=== PATIENT | female | born 1985 | race American Indian/Alaskan Native ===

== ENCOUNTER 2017-03-28 21:07 | Emergency (ER) | payer SELFPAY ==
[2017-03-28 22:24] VITALS: BP 130/79
== END 2017-03-29 01:05 | disposition left against medical advice (07) ==
LOC: ED 21:07
DX: R50.9 Fever, unspecified (principal); Z53.21 Procedure and treatment not carried out due to patient leaving prior to being seen by health care provider

== ENCOUNTER 2017-04-11 13:02 | Emergency (ER) | payer SELFPAY | END 2017-04-11 14:00 | disposition left against medical advice (07) | LOC: ED 13:02 | DX: Z53.21 Procedure and treatment not carried out due to patient leaving prior to being seen by health care provider (principal) ==

== ENCOUNTER 2020-03-09 12:23 | Emergency (ER) | payer SELFPAY ==
[2020-03-09 12:40] VITALS: BP 131/92
--- NOTE | 2020-03-09 12:40 | Emergency Department Report ---
Chief Complaint: Medical Clearance Stated Complaint: DIABETIC OFF MEDS Time Seen by Provider: 03/09/20 12:38 - HPI History of Present Illness: DM FOR SEVERAL YEARS OFF MEDS WANTED BG CHECKED NO POLYURIA/PHAGIA/DIPSIA VSS - ROS Review of Systems: NO COMPLAINTS - Exam Vital Signs: Vital Signs 03/09/20 12:33 Temperature 98.7 F Pulse Rate 74 Respiratory 18 Rate Blood Pressure 131/92 O2 Sat by Pulse 98 Oximetry Physical Exam: AO S1S2 LUNGS CTA ABD SNT MSE screening note: Focused history and physical exam performed. Due to findings the following was ordered: Patient discussed with doctor:: MIREYA MONTOYA ED Disposition for MSE Clinical Impression: Diabetes Disposition: Z MED SCREENING EXAM-LEFT Is pt being admited?: No Does the pt Need Aspirin: No Condition: Stable Instructions: Diabetes Mellitus Type 2 in Adults (ED), Meal Planning with Diabetes Exchanges (DC) Additional Instructions: DIABETIC DIET LOW CARB DRINK PLENTY OF WATER FOLLOW UP WITH PCP SEE REFERRAL BELOW Referrals: JOSHUA SIDDIQUI MD [Staff Physician] - 3-5 Days Time of Disposition: 12:43
== END 2020-03-09 12:41 | disposition left against medical advice (07) ==
LOC: ED 12:23
DX: E11.9 Type 2 diabetes mellitus without complications (principal); Z53.21 Procedure and treatment not carried out due to patient leaving prior to being seen by health care provider
CPT/HCPCS: 82962

== ENCOUNTER 2020-12-04 13:44 | Emergency (ER) | payer SELFPAY ==
[2020-12-04 16:19] VITALS: BP 135/91
[2020-12-04] MEDS ORDERED: TETANUS,DIPH,PERTUSS(ACELL) VACCINE 0.5 ML SYRINGE IM ONE (18:08)
== END 2020-12-04 19:00 | disposition left against medical advice (07) ==
LOC: ED 13:44
DX: E11.9 Type 2 diabetes mellitus without complications (principal); Z53.21 Procedure and treatment not carried out due to patient leaving prior to being seen by health care provider

== ENCOUNTER 2020-12-07 16:45 | Emergency (ER) | payer SELFPAY ==
--- NOTE | 2020-12-07 20:37 | Event Note ---
ED Screening Note Date of service: 12/07/20 Time: 20:34 ED Screening Note: Patient is a 35-year-old female with a history of psych bipolar, anxiety, diabetes type 2. Patient presents today for feeling anxiety anxious. Patient denies SI or HI. Patient denies chest pain or shortness of breath, no dizziness, lightheadedness, no nausea no vomiting. There is been no fever or chills. Patient states she feels like everyone blames her for everything. Symptoms are exacerbated by stress. Symptoms are relieved by nothing tried. This initial assessment/diagnostic orders/clinical plan/treatment(s) is/are subject to change based on patients health status, clinical progression and re-assessment by fellow clinical providers in the ED. Further treatment and workup at subsequent clinical providers discretion. Patient/guardian urged not to elope from the ED as their condition may be serious if not clinically assessed and managed. Initial orders include: psych consult, cmp, cbc, ua, hcg, uds, tylenol, salicylate,
[2020-12-07 21:01] LABS: Basophils # (Auto) 0.1 K/mm3 (0.0-0.1); Eosinophils # (Auto) 0.1 K/mm3 (0.0-0.4); Eosinophils % (Auto) 0.8 % (0.0-4.3); Hemoglobin 12.9 gm/dl (10.1-14.3); Lymphocytes # (Auto) 2.2 K/mm3 (1.2-5.4); Lymphocytes % (Auto) 28.3 % (13.4-35.0); Mean Corpuscular HGB Conc 33 % (30-34); Mean Corpuscular Volume 84 fl (79-97); Monocytes # (Auto) 0.6 K/mm3 (0.0-0.8); Monocytes % (Auto) 7.5 % (0.0-7.3); Platelet Count 339 K/mm3 (140-440); Red Blood Count 4.64 M/mm3 (3.65-5.03); Red Cell Distribution Width 14.7 % (13.2-15.2)
[2020-12-07 21:17] LABS: Alanine Aminotransferase 11 units/L (7-56); Albumin 4.1 g/dL (3.9-5); Blood Urea Nitrogen 9 mg/dL (7-17); Calcium 8.9 mg/dL (8.4-10.2); Hemolysis Index 5
[2020-12-07 21:24] LABS: BUN/Creatinine Ratio 18
--- NOTE | 2020-12-08 01:39 | Emergency Department Report ---
ED Psych HPI - General Chief Complaint: Anxiety Stated Complaint: BACK PAIN, STRESS Time Seen by Provider: 12/08/20 01:21 Source: patient Mode of arrival: Ambulatory - History of Present Illness Initial Comments: CC: "I have just been under a lot of stress. I'm worried about my health." HPI: THis is a 35 yo female with hx of DM, anxiety, bipolar disorder who presents with anxiety. She has felt overwhelmed for the past 2-3 months. She quit her job last month. She is worried that her blood sugar may be out of control. She is not taking any psychotropic medications. She is no longer using humulin. She receives mental health treatment at the [facility]. NO SI/HI/hallucinations. MD Complaint: other (Feels anxious) -: month(s) (2 to 3 months) Associated Psychiatric Symptoms: other (Anxiety stress) History of same: Yes Quality: constant Improves With: none Worsens With: none Context: not taking psychiatric, significant life stressor Treatments Prior to Arrival: none - Related Data Home Medications Medication Instructions Recorded Confirmed Last Taken No Known Home Medications [No 06/18/16 06/18/16 Unknown Reported Home Medications] Allergies Allergy/AdvReac Type Severity Reaction Status Date / Time No Known Allergies Allergy Verified 12/07/20 17:27 ED Review of Systems ROS: Stated complaint: BACK PAIN, STRESS Other details as noted in HPI Comment: All other systems reviewed and negative Constitutional: denies: fever, malaise Respiratory: denies: cough, shortness of breath Cardiovascular: denies: chest pain Gastrointestinal: denies: abdominal pain, nausea, vomiting Psychiatric: anxiety. denies: depression, auditory hallucinations, visual hallucinations, homicidal thoughts, suicidal thoughts ED Past Medical Hx - Past Medical History Previous Medical History?: Yes Hx Diabetes: Yes (3 years ago) Hx Psychiatric Treatment: Yes (bipolar disorder) Additional medical history: Vaginal delivery x 2. "Stillborn x 1". Anxiety - Surgical History Past Surgical History?: Yes Additional Surgical History: x 2 - Social History Smoking Status: Never Smoker Substance Use Type: None - Medications Home Medications: Home Medications Medication Instructions Recorded Confirmed Last Taken Type No Known Home Medications [No 06/18/16 06/18/16 Unknown History Reported Home Medications] ED Physical Exam - General Limitations: No Limitations General appearance: alert, in no apparent distress, other (Pleasant, smiling, conversant) - Head Head exam: Present: atraumatic, normocephalic - Eye Eye exam: Present: normal appearance - ENT ENT exam: Present: mucous membranes moist - Neck Neck exam: Present: normal inspection, full ROM - Respiratory Respiratory exam: Present: normal lung sounds bilaterally. Absent: respiratory distress, wheezes, rales, rhonchi - Cardiovascular Cardiovascular Exam: Present: regular rate, normal rhythm, normal heart sounds. Absent: systolic murmur, diastolic murmur, rubs, gallop - GI/Abdominal GI/Abdominal exam: Present: soft, normal bowel sounds. Absent: distended, tenderness, guarding, rebound - Extremities Exam Extremities exam: Present: normal inspection - Back Exam Back exam: Present: normal inspection - Neurological Exam Neurological exam: Present: alert, oriented X3, normal gait - Psychiatric Psychiatric exam: Present: normal affect, normal mood. Absent: depressed, agitated, anxious, flat affect, manic, homicidal ideation, suicidal ideation - Skin Skin exam: Present: warm, dry, intact, normal color. Absent: rash ED Course Vital Signs 12/07/20 17:27 Temperature 99.3 F Pulse Rate 110 H Respiratory 20 Rate Blood Pressure 152/94 O2 Sat by Pulse 99 Oximetry ED Medical Decision Making - Lab Data Result diagrams: 12/07/20 20:46 12/07/20 20:46 Laboratory Results - last 24 hr 12/07/20 12/07/20 12/07/20 20:46 20:46 20:46 WBC 7.8 RBC 4.64 Hgb 12.9 Hct 39.0 MCV 84 MCH 28 MCHC 33 RDW 14.7 Plt Count 339 Lymph % (Auto) 28.3 [place] % (Auto) 7.5 H Eos % (Auto) 0.8 Baso % (Auto) 1.0 Lymph # (Auto) 2.2 [place] # (Auto) 0.6 Eos # (Auto) 0.1 Baso # (Auto) 0.1 Seg Neutrophils % 62.4 Seg Neutrophils # 4.9 Sodium 137 Potassium 3.6 Chloride 100.2 Carbon Dioxide 26 Anion Gap 14 BUN 9 Creatinine 0.5 L Estimated GFR > 60 BUN/Creatinine Ratio 18 Glucose 98 Calcium 8.9 Total Bilirubin 0.20 AST 16 ALT 11 Alkaline Phosphatase 56 Total Protein 7.4 Albumin 4.1 Albumin/Globulin Ratio 1.2 Salicylates < 0.3 L Acetaminophen 12/07/20 20:46 WBC RBC Hgb Hct MCV MCH MCHC RDW Plt Count Lymph % (Auto) [place] % (Auto) Eos % (Auto) Baso % (Auto) Lymph # (Auto) [place] # (Auto) Eos # (Auto) Baso # (Auto) Seg Neutrophils % Seg Neutrophils # Sodium Potassium Chloride Carbon Dioxide Anion Gap BUN Creatinine Estimated GFR BUN/Creatinine Ratio Glucose Calcium Total Bilirubin AST ALT Alkaline Phosphatase Total Protein Albumin Albumin/Globulin Ratio Salicylates Acetaminophen 5.0 L - Medical Decision Making 1. Stress anxiety history of anxiety disorder and bipolar disorder. Patient is very insightful. She is calm. She denies suicidal homicidal ideation. Denies hallucinations. She does not appear to be a risk to herself or others. I have encouraged her to follow-up at [facility]. 2. History of diabetes mellitus: Considering patient's recent weight loss since she has been persistently euglycemic over the last several years, I suspect she has prediabetes. Glucose 98 on random chemistry drawn. Upon lab review CBC chemistry serum toxicology within normal limits. Critical care attestation.: If time is entered above; I have spent that time in minutes in the direct care of this critically ill patient, excluding procedure time. ED Disposition Clinical Impression: Anxiety, History of diabetes mellitus, Bipolar disorder Disposition: -01 TO HOME OR SELFCARE Is pt being admited?: No Does the pt Need Aspirin: No Condition: Fair Instructions: Managing Anxiety, Adult Referrals: JOSHUA SIDDIQUI MD [Staff Physician] - 3-5 Days [facility] [Outside] - 3-5 Days
[2020-12-08 02:35] VITALS: BP 133/89
== END 2020-12-08 02:05 | disposition home or self-care (01) ==
LOC: ED 16:45
DX: F41.9 Anxiety disorder, unspecified (principal); F31.9 Bipolar disorder, unspecified; E11.9 Type 2 diabetes mellitus without complications; Z79.899 Other long term (current) drug therapy
CPT/HCPCS: 36415; 80053; 80320; 85025; 99283; G0480

== ENCOUNTER 2020-12-08 06:26 | Emergency (ER) | payer SELFPAY ==
[2020-12-08 08:11] LABS: Basophils % (Auto) 0.4 % (0.0-1.8); Eosinophils % (Auto) 0.6 % (0.0-4.3); Hematocrit 40.3 % (30.3-42.9); Hemoglobin 13.2 gm/dl (10.1-14.3); Lymphocytes # (Auto) 1.5 K/mm3 (1.2-5.4); Lymphocytes % (Auto) 21.7 % (13.4-35.0); Mean Corpuscular HGB Conc 33 % (30-34); Mean Corpuscular Volume 83 fl (79-97); Monocytes # (Auto) 0.6 K/mm3 (0.0-0.8); Monocytes % (Auto) 8.1 % (0.0-7.3); Platelet Count 365 K/mm3 (140-440); Red Blood Count 4.83 M/mm3 (3.65-5.03); Red Cell Distribution Width 14.9 % (13.2-15.2)
[2020-12-08 08:35] LABS: Alanine Aminotransferase 11 units/L (7-56); Albumin 4.1 g/dL (3.9-5); Blood Urea Nitrogen 8 mg/dL (7-17); Hemolysis Index 4
[2020-12-08 08:36] LABS: BUN/Creatinine Ratio 16
[2020-12-08 08:40] LABS: Bilirubin,Urine NEG (Negative); Blood,Urine NEG (Negative); Color,Urine Yellow (Yellow); Protein,Urine <15 mg/dL mg/dL (Negative); Urobilinogen,Urine < 2.0 mg/dL (<2.0)
--- NOTE | 2020-12-08 08:59 | Emergency Department Report ---
ED General Adult HPI - General Chief complaint: Chest Pain Stated complaint: CHEST TIGHTNESS/FINGER NUMBNESS PUI?: No Time Seen by Provider: 12/08/20 08:13 Source: patient Mode of arrival: Ambulatory Limitations: No Limitations - History of Present Illness Initial comments: Patient is a pleasant 35-year-old -[place] female that comes to the emergency room for the third time this month with vague complaints. She is und er a lot of stress at her job and is being harassed there. This is created anxiety for her. Couple days she was taken goalie [id number] diet medications as well as drinking apple cider vinegar. She began to think that there is something physically wrong with her. Her family told her that she was just anxious and upset and discouraged her from the ER but she came for a visit anyway. She states that she left at a prior visit because the wait was too long. The EMR was reviewed all of her labs are normal. Patient does have a mental health history she denies being on any medications at this time. She denies HI or SI. She denies auditory or visual hallucinations. Labs were noted as ordered by the overnight staff and they 2 are normal. Patient was reassured. -: days(s) Consistency: intermittent Improves with: none Worsens with: none Associated Symptoms: denies other symptoms - Related Data Home Medications Medication Instructions Recorded Confirmed Last Taken No Known Home Medications [No 06/18/16 06/18/16 Unknown Reported Home Medications] Allergies Allergy/AdvReac Type Severity Reaction Status Date / Time No Known Allergies Allergy Verified 12/07/20 17:27 ED Review of Systems ROS: Stated complaint: CHEST TIGHTNESS/FINGER NUMBNESS Other details as noted in HPI Comment: All other systems reviewed and negative ED Past Medical Hx - Past Medical History Previous Medical History?: Yes Hx Diabetes: Yes (3 years ago) Hx Psychiatric Treatment: Yes (bipolar disorder, anxiety) Additional medical history: Vaginal delivery x 2. "Stillborn x 1". Anxiety - Surgical History Past Surgical History?: Yes Additional Surgical History: x 2 - Family History Family history: no significant - Social History Smoking Status: Never Smoker Substance Use Type: None - Medications Home Medications: Home Medications Medication Instructions Recorded Confirmed Last Taken Type No Known Home Medications [No 06/18/16 06/18/16 Unknown History Reported Home Medications] ED Physical Exam - General Limitations: No Limitations General appearance: alert, in no apparent distress - Head Head exam: Present: atraumatic, normocephalic - Eye Eye exam: Present: normal appearance - ENT ENT exam: Present: mucous membranes moist - Neck Neck exam: Present: normal inspection - Respiratory Respiratory exam: Present: normal lung sounds bilaterally. Absent: respiratory distress - Cardiovascular Cardiovascular Exam: Present: regular rate, normal rhythm. Absent: systolic murmur, diastolic murmur, rubs, gallop - GI/Abdominal GI/Abdominal exam: Present: soft, normal bowel sounds - Extremities Exam Extremities exam: Present: normal inspection - Back Exam Back exam: Present: normal inspection - Neurological Exam Neurological exam: Present: alert, oriented X3 - Psychiatric Psychiatric exam: Present: normal affect, normal mood - Skin Skin exam: Present: warm, dry, intact, normal color. Absent: rash ED Medical Decision Making - Lab Data Result diagrams: 12/08/20 07:34 12/08/20 07:34 - EKG Data EKG shows normal: sinus rhythm Rate: normal - EKG Data When compared to previous EKG there are: no significant change Interpretation: no acute changes - Medical Decision Making Lab Results 12/08/20 12/08/20 12/08/20 Range/Units 07:34 07:34 Unknown WBC 7.0 (4.5-11.0) K/mm3 RBC 4.83 (3.65-5.03) M/mm3 Hgb 13.2 (10.1-14.3) gm/dl Hct 40.3 (30.3-42.9) % MCV 83 (79-97) fl MCH 27 L (28-32) pg MCHC 33 (30-34) % RDW 14.9 (13.2-15.2) % Plt Count 365 (140-440) K/mm3 Lymph % (Auto) 21.7 (13.4-35.0) % [place] % (Auto) 8.1 H (0.0-7.3) % Eos % (Auto) 0.6 (0.0-4.3) % Baso % (Auto) 0.4 (0.0-1.8) % Lymph # (Auto) 1.5 (1.2-5.4) K/mm3 [place] # (Auto) 0.6 (0.0-0.8) K/mm3 Eos # (Auto) 0.0 (0.0-0.4) K/mm3 Baso # (Auto) 0.0 (0.0-0.1) K/mm3 Seg Neutrophils % 69.2 (40.0-70.0) % Seg Neutrophils # 4.8 (1.8-7.7) K/mm3 Sodium 139 (137-145) mmol/L Potassium 4.0 (3.6-5.0) mmol/L Chloride 101.5 (98-107) mmol/L Carbon Dioxide 26 (22-30) mmol/L Anion Gap 16 mmol/L BUN 8 (7-17) mg/dL Creatinine 0.5 L (0.6-1.2) mg/dL Estimated GFR > 60 ml/min BUN/Creatinine Ratio 16 % Glucose 97 (65-100) mg/dL Calcium 9.0 (8.4-10.2) mg/dL Total Bilirubin 0.20 (0.1-1.2) mg/dL AST 17 (5-40) units/L ALT 11 (7-56) units/L Alkaline Phosphatase 56 (35-129) units/L Total Protein 7.9 (6.3-8.2) g/dL Albumin 4.1 (3.9-5) g/dL Albumin/Globulin Ratio 1.1 % Urine Color Yellow (Yellow) Urine Turbidity Clear (Clear) Urine pH 6.0 (5.0-7.0) Ur Specific [place] 1.015 (1.003-1.030) Urine Protein <15 mg/dl (Negative) mg/dL Urine Glucose (UA) Neg (Negative) mg/dL Urine Ketones Neg (Negative) mg/dL Urine Blood Neg (Negative) Urine Nitrite Neg (Negative) Urine Bilirubin Neg (Negative) Urine Urobilinogen < 2.0 (<2.0) mg/dL Ur Leukocyte Esterase Sm (Negative) Urine WBC (Auto) 2.0 (0.0-6.0) /HPF Urine RBC (Auto) 3.0 (0.0-6.0) /HPF U Epithel Cells (Auto) 2.0 (0-13.0) /HPF labs noted ua noted prior visits - and labs noted- Advised to not take any otc diet medications pt dc to home with dc plan of care including pcp follow up. Patient discharged home. Vital signs are normal as recorded manually by RN. - Differential Diagnosis anxiety Critical care attestation.: If time is entered above; I have spent that time in minutes in the direct care of this critically ill patient, excluding procedure time. ED Disposition Clinical Impression: Anxiety Disposition: DC-01 TO HOME OR SELFCARE Is pt being admited?: No Does the pt Need Aspirin: No Condition: Stable Instructions: Managing Anxiety, Adult Additional Instructions: STOP VENUS AND OTHER DIET AIDS FOLLOW UP WITH PCP NEXT WEEK FOR FOLLOW UP Referrals: JOSHUA SIDDIQUI MD [Staff Physician] - 3-5 Days Time of Disposition: 08:56
[2020-12-08 09:09] VITALS: BP 128/79
--- NOTE | 2020-12-09 17:39 | Electrocardiograph Report ---
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
== END 2020-12-08 09:08 | disposition home or self-care (01) ==
LOC: ED 06:26
DX: F41.9 Anxiety disorder, unspecified (principal); E11.9 Type 2 diabetes mellitus without complications; F31.9 Bipolar disorder, unspecified; Z79.899 Other long term (current) drug therapy
CPT/HCPCS: 36415; 80053; 81001; 85025; 93005; 99283

== ENCOUNTER 2021-02-20 11:28 | Emergency (ER) | payer SELFPAY ==
[2021-02-20 11:49] VITALS: BP 130/80
--- NOTE | 2021-02-20 11:58 | Emergency Department Report ---
ED Neck Pain/Injury HPI - General Chief Complaint: Neck Pain/Injury Stated Complaint: BURN ON (R)HAND/BAD PAIN/ARM Time Seen by Provider: 02/20/21 11:42 Source: patient, RN notes reviewed Mode of arrival: Ambulatory Limitations: No Limitations - History of Present Illness Initial Comments: This is a 35-year-old female nontoxic, well nourished in appearance, no acute signs of distress presents to the ED with c/o of acute on chronic intermittent right upper extremity tingling sensation times several weeks. Patient stated that symptoms all occurred on 02/10/2021 after a superficial burn to right pinky at work. Patient stated was seen by Sai the following day and was given Silvadene. Patient then stated she went back to [facility] and told her that she has intermittent tingling numbness sensation from the pinky that radiates all the way to the neck area and was told that this is not related to her burn. Patient otherwise denies any symptoms or conditions. Currently patient denies any symptoms or complaints of a tingling sensation but wants a second opinion. Patient otherwise denies any neck pain currently. Patient does stated just have tingling sensation in the neck of right lateral side that is intermittent but denies any symptoms today. Patient denies any other injuries or trauma. Patient stated had a superficial burn and was told it is a first-degree burn. Denies any bladder or bowel instability. Patient denies any urinary symptoms. Denies any fever, chills, nausea, vomiting, headache, stiff neck, chest pain or shortness of breath. Patient denies any numbness or tingling. Denies any allergies. MD Complaint: upper back pain -: Gradual, days(s) Place: work Radiation: right upper extremity Severity: mild Severity scale (0 -10): 3 Quality: tingling Consistency: intermittent Improves With: none Worsens With: none Associated Symptoms: none. denies: headache, fever, numbness, tingling, weakness, vertigo, difficulty walking, swollen glands, difficulty swallowing, nausea, vomiting Treatments Prior to Arrival: none - Related Data Home Medications Medication Instructions Recorded Confirmed Last Taken No Known Home Medications [No 06/18/16 06/18/16 Unknown Reported Home Medications] Allergies Allergy/AdvReac Type Severity Reaction Status Date / Time No Known Allergies Allergy Verified 12/07/20 17:27 ED Review of Systems ROS: Stated complaint: BURN ON (R)HAND/BAD PAIN/ARM Other details as noted in HPI Comment: All other systems reviewed and negative Constitutional: denies: chills, fever Eyes: denies: eye pain, eye discharge, vision change ENT: denies: ear pain, throat pain Respiratory: denies: cough, shortness of breath, wheezing Cardiovascular: denies: chest pain, palpitations Endocrine: no symptoms reported Gastrointestinal: denies: abdominal pain, nausea, diarrhea Genitourinary: denies: urgency, dysuria, discharge Musculoskeletal: denies: back pain, joint swelling, arthralgia Skin: denies: rash, lesions, change in color, change in hair/nails, pruritus Neurological: denies: headache, weakness, numbness, paresthesias, confusion, abnormal gait, vertigo Psychiatric: denies: anxiety, depression Hematological/Lymphatic: denies: easy bleeding, easy bruising ED Past Medical Hx - Past Medical History Previous Medical History?: Yes Hx Diabetes: Yes (3 years ago) Hx Psychiatric Treatment: Yes (bipolar disorder, anxiety) Additional medical history: Vaginal delivery x 2. "Stillborn x 1". Anxiety - Surgical History Past Surgical History?: Yes Additional Surgical History: x 2 - Social History Smoking Status: Never Smoker Substance Use Type: None - Medications Home Medications: Home Medications Medication Instructions Recorded Confirmed Last Taken Type No Known Home Medications [No 06/18/16 06/18/16 Unknown History Reported Home Medications] ED Physical Exam - General Limitations: No Limitations General appearance: alert, in no apparent distress - Head Head exam: Present: atraumatic, normocephalic - Eye Eye exam: Present: normal appearance, PERRL, EOMI - Neck Neck exam: Present: normal inspection, full ROM. Absent: tenderness, meningismus, lymphadenopathy - Respiratory Respiratory exam: Absent: respiratory distress - Cardiovascular Cardiovascular Exam: Present: regular rate - Extremities Exam Extremities exam: Present: normal inspection, full ROM, normal capillary refill. Absent: tenderness, joint swelling - Expanded Upper Extremity Exam Right General: Present: normal inspection Shoulder Exam: Present: normal inspection, full ROM. Absent: tenderness, swelling, abrasion, laceration, ecchymosis, deformity, crepidus, dislocation, erythema, tenderness over AC joint Upper Arm exam: Present: normal inspection, full ROM. Absent: tenderness, swelling, abrasion, laceration, ecchymosis, deformity, crepidus, dislocation, erythema Elbow exam: Present: normal inspection, full ROM. Absent: tenderness, swelling, abrasion, laceration, ecchymosis, deformity, crepidus, dislocation, erythema, effusion, pain w/ pronation/supination, tenderness over radial head Forearm Wrist exam: Present: normal inspection, full ROM. Absent: tenderness, swelling, abrasion, laceration, ecchymosis, deformity, crepidus, dislocation, erythema, tenderness over anatomical snuff box, pain with axial thumb loading Hand Wrist exam: Present: normal inspection, full ROM. Absent: tenderness, swelling, abrasion, laceration, ecchymosis, deformity, crepidus, dislocation, erythema, amputation, nail avulsion, subungual hematoma Vascular: Present: normal capillary refill. Absent: vascular compromise (Neurovascular within normal limits) - Back Exam Back exam: Present: normal inspection, full ROM. Absent: tenderness, CVA tenderness (R), CVA tenderness (L), muscle spasm, paraspinal tenderness, vertebral tenderness, rash noted - Neurological Exam Neurological exam: Present: alert, oriented X3, normal gait - Psychiatric Psychiatric exam: Present: normal affect, normal mood - Skin Skin exam: Present: warm, dry, intact, normal color. Absent: rash ED Course Vital Signs 02/20/21 11:48 Temperature 98.4 F Pulse Rate 93 H Respiratory 20 Rate Blood Pressure 130/80 [Right] O2 Sat by Pulse 98 Oximetry - Reevaluation(s) Reevaluation #1: 02/20/21 12:01 Patient is speaking in full sentences with no signs of distress noted. ED Medical Decision Making - Medical Decision Making 35-year-old female that presents with tingling sensation. Exam is unremarkable. Vital signs are stable. Patient was instructed to follow-up with a primary care doctor in 3-5 days or if symptoms worsen and continue return to emergency room as soon as possible. At time of discharge, the patient does not seem toxic or ill in appearance. No acute signs of distress noted. Patient agrees to discharge treatment plan of care. No further questions noted by the patient. Critical care attestation.: If time is entered above; I have spent that time in minutes in the direct care of this critically ill patient, excluding procedure time. ED Disposition Clinical Impression: Tingling of right upper extremity Disposition: DC-01 TO HOME OR SELFCARE Is pt being admited?: No Does the pt Need Aspirin: No Condition: Stable Additional Instructions: Follow-up with a primary care doctor in 3-5 days or if symptoms worsen and continue return to emergency room as soon as possible. Referrals: PRIMARY CAREMD [Referring] - 3-5 Days JOSHUA SIDDIQUI MD [Staff Physician] - 3-5 Days Time of Disposition: 12:10
== END 2021-02-20 14:25 | disposition home or self-care (01) ==
LOC: ED 11:28
DX: R20.2 Paresthesia of skin (principal); E11.9 Type 2 diabetes mellitus without complications; Z98.890 Other specified postprocedural states; Z79.899 Other long term (current) drug therapy
CPT/HCPCS: 99282

== ENCOUNTER 2021-06-23 00:35 | Emergency (ER) | payer SELFPAY ==
[2021-06-23 00:42] VITALS: BP 168/100
--- NOTE | 2021-06-23 01:21 | Emergency Department Report ---
ED General Adult HPI - General Chief complaint: Anxiety Stated complaint: HYPERVENTILATION Source: patient Mode of arrival: Ambulatory Limitations: No Limitations - History of Present Illness Initial comments: Patient is a 35-year-old -[place] female with a history of anxiety and depression, bipolar disorder and type 2 diabetes who presents to the ED with complaint of "being overwhelmed by staff", insomnia and intermittent chest tightness for the last 2 days. Patient states that her mind has been focused on faith and that she felt overwhelmed by the teachings that she received recently in charge. Patient states that she has her medications at home but rarely takes them. Patient denies suicidal or homicidal ideations, hallucinations, chest pain, shortness of breath, dizziness, syncope, fever, chills, cough, headache, nausea and vomiting or abdominal pain. MD Complaint: Anxiety and chest tightness; "overwhelmed by stuff"; Insomnia -: Sudden, days(s) (2) Location: chest Radiation: non-radiation Severity scale (0 -10): 0 Quality: dull Consistency: intermittent Improves with: none Worsens with: none Associated Symptoms: denies other symptoms. denies: confusion, chest pain, cough, diaphoresis, fever/chills, headaches, loss of appetite, malaise, nausea/vomiting, rash, seizure, shortness of breath, syncope, weakness, other Treatments Prior to Arrival: none - Related Data Home Medications Medication Instructions Recorded Confirmed Last Taken No Known Home Medications [No 06/18/16 06/18/16 Unknown Reported Home Medications] Allergies Allergy/AdvReac Type Severity Reaction Status Date / Time No Known Allergies Allergy Verified 12/07/20 17:27 ED Review of Systems ROS: Stated complaint: HYPERVENTILATION Other details as noted in HPI Constitutional: denies: chills, fever Eyes: denies: eye pain, eye discharge, vision change ENT: denies: ear pain, throat pain Respiratory: denies: cough, shortness of breath, wheezing Cardiovascular: chest pain (chest tightness, anxiety, ). denies: palpitations Endocrine: no symptoms reported Gastrointestinal: denies: abdominal pain, nausea, vomiting, diarrhea Genitourinary: denies: urgency, dysuria, discharge Musculoskeletal: denies: back pain, joint swelling, arthralgia Skin: denies: rash, lesions Neurological: denies: headache, weakness, paresthesias Psychiatric: anxiety. denies: depression, auditory hallucinations, visual hallucinations, homicidal thoughts, suicidal thoughts Hematological/Lymphatic: denies: easy bleeding, easy bruising ED Past Medical Hx - Past Medical History Previous Medical History?: Yes Hx Diabetes: Yes (3 years ago) Hx Psychiatric Treatment: Yes (bipolar disorder, anxiety) Additional medical history: Vaginal delivery x 2. "Stillborn x 1". Anxiety - Surgical History Past Surgical History?: Yes Additional Surgical History: x 2 - Social History Smoking Status: Never Smoker Substance Use Type: None - Medications Home Medications: Home Medications Medication Instructions Recorded Confirmed Last Taken Type No Known Home Medications [No 06/18/16 06/18/16 Unknown History Reported Home Medications] ED Physical Exam - General Limitations: No Limitations General appearance: alert, in no apparent distress - Head Head exam: Present: atraumatic, normocephalic, normal inspection - Eye Eye exam: Present: normal appearance, PERRL, EOMI Pupils: Present: normal accommodation - ENT ENT exam: Present: normal exam, normal orophraynx, mucous membranes moist, TM's normal bilaterally, normal external ear exam - Neck Neck exam: Present: normal inspection, full ROM - Respiratory Respiratory exam: Present: normal lung sounds bilaterally. Absent: respiratory distress, wheezes, rales, rhonchi, chest wall tenderness, accessory muscle use, decreased breath sounds, prolonged expiratory, other - Cardiovascular Cardiovascular Exam: Present: regular rate, normal rhythm, normal heart sounds. Absent: systolic murmur, diastolic murmur, rubs, gallop - GI/Abdominal GI/Abdominal exam: Present: soft, normal bowel sounds. Absent: tenderness, guarding, rebound, rigid, organomegaly, mass - Extremities Exam Extremities exam: Present: normal inspection, full ROM, normal capillary refill - Back Exam Back exam: Present: normal inspection, full ROM. Absent: tenderness, CVA tenderness (R), CVA tenderness (L), muscle spasm, paraspinal tenderness, vertebral tenderness - Neurological Exam Neurological exam: Present: alert, oriented X3, CN II-XII intact, normal gait, reflexes normal - Psychiatric Psychiatric exam: Present: depressed, anxious, flat affect. Absent: agitated, manic, homicidal ideation, suicidal ideation - Skin Skin exam: Present: warm, dry, intact, normal color. Absent: rash ED Course Vital Signs 06/23/21 00:40 Temperature 98.3 F Pulse Rate 95 H Respiratory 18 Rate Blood Pressure 168/100 O2 Sat by Pulse 98 Oximetry ED Medical Decision Making - Medical Decision Making This is a 35-year-old -[place] female with a history of anxiety and depression, bipolar disorder and type 2 diabetes who presents to the ED with complaint of "being overwhelmed by staff", insomnia and intermittent chest tightness for the last 2 days. Patient states that her mind has been focused on faith and that she felt overwhelmed by the teachings that she received recently in charge. Patient states that she has her medications at home but rarely takes them. In the ED, patient is alert and oriented x3 and is not in any distress. Patient is however anxious on physical exam but is not suicidal, homicidal and with no hallucination although the patient's affect is flat and she appears to have some delusional thoughts. Patient declined any medication as well as prescriptions for anxiety stating that she has enough medicines at home for the same and would go to take this medication that she already has at home and follow-up with her primary care physician. Patient was therefore discharged home and advised to follow-up with her primary care physician or psychiatrist and to take her medications as previously advised. Patient advised return to the ED immediately if symptoms get worse. - Differential Diagnosis Anxiety; bipolar; depression; schizophrenia; Critical care attestation.: If time is entered above; I have spent that time in minutes in the direct care of this critically ill patient, excluding procedure time. ED Disposition Clinical Impression: Anxiety as acute reaction to exceptional stress Disposition: 01 HOME / SELF CARE / HOMELESS Is pt being admited?: No Does the pt Need Aspirin: No Condition: Stable Additional Instructions: Take your regular medications as previously advised, drink plenty of fluids, follow-up with your primary care physician or psychiatrist in 3 to 5 days for reevaluation. Return to the ED immediately if symptoms get worse. Referrals: [facility] [Provider Group] - 3-5 Days Forms: Work/School Release Form(ED) Time of Disposition: 01:18 Print Language: MONTENEGRIN
== END 2021-06-23 01:25 | disposition home or self-care (01) ==
LOC: ED 00:35
DX: F41.1 Generalized anxiety disorder (principal); F43.0 Acute stress reaction; E11.9 Type 2 diabetes mellitus without complications; G47.00 Insomnia, unspecified; R07.89 Other chest pain; F31.9 Bipolar disorder, unspecified
CPT/HCPCS: 99281

== ENCOUNTER 2021-07-04 15:33 | Emergency (ER) | payer SELFPAY ==
[2021-07-04 16:00] VITALS: BP 125/87
--- NOTE | 2021-07-04 16:04 | Emergency Department Report ---
ED ENT HPI - General Stated complaint: ABCESS ON TOOTH Time Seen by Provider: 07/04/21 15:56 Source: patient - History of Present Illness Initial comments: The patient was evaluated in the emergency department for symptoms described in the history of present illness. He/she was evaluated in the context of the global COVID-19 pandemic, which necessitated consideration that the patient might be at risk for infection with the virus that causes COVID-19. Institutional protocols and algorithms that pertain to the evaluation of patients at risk for COVID-19 are in a state of rapid change based on information released by regulatory bodies including the CDC and federal and state organizations. These policies and algorithms were followed during the patient's care in the emergency department. Please note that these policies, procedures and recommendations changed on a rapid basis. 35-year-old -[place] female presents to the emergency room complaining of right lower jaw pain and swelling that is been off and on for a while. She states that she is aware that she has a few bad teeth on the right lower jaw. She states that she currently does not have insurance and has not been able to follow-up with a dentist. Has no known drug allergies per patient. MD complaint: tooth pain Onset/Timin -: days(s) Location: tooth # (28,29) Severity: moderate Severity scale (0 -10): 7 Quality: aching, sharp Consistency: intermittent Improves with: none Worsens with: none Associated Symptoms: gum swelling, toothache - Related Data Previous Rx's Medication Instructions Recorded Last Taken Type Amoxicillin/Potassium Clav 1 each PO Q12H 7 Days #14 tablet 07/04/21 Unknown Rx [Augmentin 875-125 Tablet] Ibuprofen [Motrin 800 MG tab] 800 mg PO Q8HR PRN #30 tablet 07/04/21 Unknown Rx Allergies Allergy/AdvReac Type Severity Reaction Status Date / Time No Known Allergies Allergy Verified 12/07/20 17:27 ED Dental HPI - General Stated complaint: ABCESS ON TOOTH Time Seen by Provider: 07/04/21 15:56 - Related Data Previous Rx's Medication Instructions Recorded Last Taken Type Amoxicillin/Potassium Clav 1 each PO Q12H 7 Days #14 tablet 07/04/21 Unknown Rx [Augmentin 875-125 Tablet] Ibuprofen [Motrin 800 MG tab] 800 mg PO Q8HR PRN #30 tablet 07/04/21 Unknown Rx Allergies Allergy/AdvReac Type Severity Reaction Status Date / Time No Known Allergies Allergy Verified 12/07/20 17:27 ED Review of Systems ROS: Stated complaint: ABCESS ON TOOTH Other details as noted in HPI Comment: All other systems reviewed and negative ED Past Medical Hx - Past Medical History Hx Diabetes: Yes (3 years ago) Hx Psychiatric Treatment: Yes (bipolar disorder, anxiety) Additional medical history: Vaginal delivery x 2. "Stillborn x 1". Anxiety - Surgical History Additional Surgical History: x 2 - Social History Smoking Status: Never Smoker Substance Use Type: None - Medications Home Medications: Home Medications Medication Instructions Recorded Confirmed Last Taken Type Amoxicillin/Potassium Clav 1 each PO Q12H 7 Days #14 tablet 07/04/21 Unknown Rx [Augmentin 875-125 Tablet] Ibuprofen [Motrin 800 MG tab] 800 mg PO Q8HR PRN #30 tablet 07/04/21 Unknown Rx ED Physical Exam - General General appearance: alert, in no apparent distress - Head Head exam: Present: atraumatic, normocephalic - Eye Eye exam: Present: normal appearance - ENT ENT exam: Present: mucous membranes moist - Expanded ENT Exam Expanded Teeth exam: Present: dental caries (Multiple), dental tenderness # (28,29), gingival enlargement - Neck Neck exam: Present: normal inspection, full ROM - Respiratory Respiratory exam: Present: normal lung sounds bilaterally. Absent: respiratory distress - Cardiovascular Cardiovascular Exam: Present: regular rate, normal rhythm. Absent: systolic mu rmur, diastolic murmur, rubs, gallop - GI/Abdominal GI/Abdominal exam: Present: soft, normal bowel sounds - Extremities Exam Extremities exam: Present: normal inspection - Back Exam Back exam: Present: normal inspection - Neurological Exam Neurological exam: Present: alert, oriented X3 - Psychiatric Psychiatric exam: Present: normal affect, normal mood - Skin Skin exam: Present: warm, dry, intact, normal color. Absent: rash ED Course Vital Signs 07/04/21 15:58 Temperature 98.1 F Pulse Rate 75 Respiratory 16 Rate Blood Pressure 125/87 [Left] ED Medical Decision Making - Medical Decision Making 35-year-old -[place] female presents to the emergency room complaining of right lower jaw pain and swelling that is been off and on for a while. She states that she is aware that she has a few bad teeth on the right lower jaw. She states that she currently does not have insurance and has not been able to follow-up with a dentist. Has no known drug allergies per patient. Patient be placed on Augmentin and ibuprofen and referral to dentist. Critical care attestation.: If time is entered above; I have spent that time in minutes in the direct care of this critically ill patient, excluding procedure time. ED Disposition Clinical Impression: Dental abscess Disposition: HOME / SELF CARE / HOMELESS Is pt being admited?: No Does the pt Need Aspirin: No Condition: Stable Instructions: Dental Abscess, [id number] Additional Instructions: Complete antibiotics as prescribed. Pain medication as needed. Very important to increase your fluid intake and follow-up with a dentist. Prescriptions: Amoxicillin/Potassium Clav [Augmentin 875-125 Tablet] 1 each PO Q12H 7 Days #14 tablet Ibuprofen [Motrin 800 MG tab] 800 mg PO Q8HR PRN #30 tablet PRN Reason: Pain , Severe (7-10) Referrals: [facility] [Outside] - 3-5 Days [facility] [Outside] - 3-5 Days [facility] [Outside] - 3-5 Days Time of Disposition: 16:02
== END 2021-07-04 16:16 | disposition home or self-care (01) ==
LOC: ED 15:33
DX: K04.7 Periapical abscess without sinus (principal); E11.9 Type 2 diabetes mellitus without complications; F31.9 Bipolar disorder, unspecified
CPT/HCPCS: 99281

== ENCOUNTER 2021-07-10 09:16 | Emergency (ER) | payer SELFPAY ==
[2021-07-10 09:23] VITALS: BP 125/79
--- NOTE | 2021-07-10 09:37 | Emergency Department Report ---
ED General Adult HPI - General Chief complaint: Medical Clearance Stated complaint: HAIR FALLING OUT Time Seen by Provider: 07/10/21 09:24 Source: patient Mode of arrival: Ambulatory Limitations: No Limitations - History of Present Illness Initial comments: This is a 35-year-old female nontoxic, well nourished in appearance, no acute signs of distress presents to the ED with c/o of hair loss after combing. Patient that it is been going on for the past 2 years. Patient otherwise denies any other symptoms or complaints. Denies any itching, rash, chest pain, shortness of breath, fever, chills, nausea, medical medical stiff neck. Patient denies any allergies or significant past medical history -: year(s) Severity scale (0 -10): 0 Improves with: none Worsens with: none Associated Symptoms: denies other symptoms. denies: confusion, chest pain, cough, diaphoresis, fever/chills, headaches, loss of appetite, malaise, nausea/vomiting, rash, seizure, shortness of breath, syncope, weakness Treatments Prior to Arrival: none - Related Data Previous Rx's Medication Instructions Recorded Last Taken Type Amoxicillin/Potassium Clav 1 each PO Q12H 7 Days #14 tablet 07/04/21 Unknown Rx [Augmentin 875-125 Tablet] Ibuprofen [Motrin 800 MG tab] 800 mg PO Q8HR PRN #30 tablet 07/04/21 Unknown Rx Allergies Allergy/AdvReac Type Severity Reaction Status Date / Time No Known Allergies Allergy Verified 12/07/20 17:27 ED Review of Systems ROS: Stated complaint: HAIR FALLING OUT Other details as noted in HPI Comment: All other systems reviewed and negative Constitutional: denies: chills, fever Eyes: denies: eye pain, eye discharge, vision change ENT: denies: ear pain, throat pain Respiratory: denies: cough, shortness of breath, wheezing Cardiovascular: denies: chest pain, palpitations Endocrine: no symptoms reported Gastrointestinal: denies: abdominal pain, nausea, diarrhea Genitourinary: denies: urgency, dysuria, discharge Musculoskeletal: denies: back pain, joint swelling, arthralgia Skin: denies: rash, lesions Neurological: denies: headache, weakness, paresthesias Psychiatric: denies: anxiety, depression Hematological/Lymphatic: denies: easy bleeding, easy bruising ED Past Medical Hx - Past Medical History Hx Diabetes: Yes (3 years ago) Hx Psychiatric Treatment: Yes (bipolar disorder, anxiety) Additional medical history: Vaginal delivery x 2. "Stillborn x 1". Anxiety - Surgical History Additional Surgical History: x 2 - Social History Smoking Status: Never Smoker Substance Use Type: None - Medications Home Medications: Home Medications Medication Instructions Recorded Confirmed Last Taken Type Amoxicillin/Potassium Clav 1 each PO Q12H 7 Days #14 tablet 07/04/21 Unknown Rx [Augmentin 875-125 Tablet] Ibuprofen [Motrin 800 MG tab] 800 mg PO Q8HR PRN #30 tablet 07/04/21 Unknown Rx ED Physical Exam - General Limitations: No Limitations General appearance: alert, in no apparent distress - Head Head exam: Present: atraumatic, normocephalic - Eye Eye exam: Present: normal appearance - Neck Neck exam: Present: full ROM - Respiratory Respiratory exam: Absent: respiratory distress - Cardiovascular Cardiovascular Exam: Present: regular rate - Extremities Exam Extremities exam: Present: full ROM - Back Exam Back exam: Present: full ROM - Neurological Exam Neurological exam: Present: alert, oriented X3, normal gait - Psychiatric Psychiatric exam: Present: normal affect, normal mood - Skin Skin exam: Present: warm, dry, intact, normal color. Absent: rash - Other Other exam information: Exam of the head/scalp area with no significant hair loss, no rash, no signs of alopecia or fungal infection. ED Course Vital Signs 07/10/21 09:22 Temperature 98.2 F Pulse Rate 67 Respiratory 20 Rate Blood Pressure 125/79 [Right] O2 Sat by Pulse 98 Oximetry - Reevaluation(s) Reevaluation #1: 07/10/21 09:35 Patient is speaking in full sentences with no signs of distress noted. ED Medical Decision Making - Medical Decision Making 35-year-old female that presents with hair loss. Patient is stable and was examined by me. Vital signs are stable. Physical exam otherwise is unremarkable. There is no alopecia or tinea scalp infection on exam at this time. Patient was instructed to take [id number] biotin if not contraindicated by primary care doctor. Patient was instructed to follow-up with a primary care doctor in 3-5 days or if symptoms worsen and continue return to emergency room as soon as possible. At time of discharge, the patient does not seem toxic or ill in appearance. No acute signs of distress noted. Patient agrees to discharge treatment plan of care. No further questions noted by the patient. Critical care attestation.: If time is entered above; I have spent that time in minutes in the direct care of this critically ill patient, excluding procedure time. ED Disposition Clinical Impression: Hair loss Disposition: 01 HOME / SELF CARE / HOMELESS Is pt being admited?: No Does the pt Need Aspirin: No Condition: Stable Additional Instructions: Follow-up with a primary care doctor in 3-5 days or if symptoms worsen and continue return to emergency room as soon as possible. Referrals: PRIMARY CARE, [Referring] - 3-5 Days JOSHUA SIDDIQUI MD [Staff Physician] - 3-5 Days Time of Disposition: 09:37
== END 2021-07-10 09:30 | disposition home or self-care (01) ==
LOC: ED 09:16
DX: L65.9 Nonscarring hair loss, unspecified (principal); E11.9 Type 2 diabetes mellitus without complications; Z98.890 Other specified postprocedural states
CPT/HCPCS: 99282

== ENCOUNTER 2022-04-12 19:17 | Emergency (ER) | payer SELFPAY ==
[2022-04-12 20:57] VITALS: BP 137/83
== END 2022-04-13 02:00 | disposition left against medical advice (07) ==
LOC: ED 19:17
DX: K08.89 Other specified disorders of teeth and supporting structures (principal); Z53.21 Procedure and treatment not carried out due to patient leaving prior to being seen by health care provider

== ENCOUNTER 2022-04-13 16:16 | Emergency (ER) | payer SELFPAY ==
[2022-04-14] MEDS ORDERED: IBUPROFEN 600 MG TAB PO ONE (00:04)
--- NOTE | 2022-04-14 00:10 | Emergency Department Report ---
ED ENT HPI - General Chief complaint: Dental/Oral Stated complaint: TOOTH CHIPPED HAVE HOLE IN TONGUE Time Seen by Provider: 04/13/22 23:52 Source: patient Mode of arrival: Ambulatory Limitations: No Limitations - History of Present Illness Initial comments: Patient noticed 3 weeks ago that her right mandibular molar area had a chipped tooth. About 4 days ago she noticed pain in her right lateral tongue at the same area and is wondering whether this "hole" was caused by the tooth. She also states that she is type II diabetic and feels like her sugar might be off. She is a very difficult historian as it is hard to keep her on the subject. She does not have a dentist. MD complaint: tooth pain Onset/Timin -: week(s) Severity: moderate Severity scale (0 -10): 4 Quality: stabbing Consistency: constant Improves with: none Worsens with: eating Context- Dental: history of dental caries, poor dental care Associated Symptoms: toothache. denies: fever, cough, gum swelling, pain with swallowing, sore throat, tinnitus, hearing loss, discharge from ear, rhinorrhea - Related Data Previous Rx's Medication Instructions Recorded Last Taken Type Amoxicillin/K Clav Tab [Augmentin 1 each PO Q12HR #20 tablet 04/14/22 Unknown Rx 500 MG TAB] Ibuprofen [Motrin 600 MG tab] 600 mg PO Q8H PRN #15 tab 04/14/22 Unknown Rx Allergies Allergy/AdvReac Type Severity Reaction Status Date / Time No Known Allergies Allergy Verified 12/07/20 17:27 ED Dental HPI - General Chief complaint: Dental/Oral Stated complaint: TOOTH CHIPPED HAVE HOLE IN TONGUE Time Seen by Provider: 04/13/22 23:52 Source: patient Mode of arrival: Ambulatory Limitations: No Limitations - Related Data Previous Rx's Medication Instructions Recorded Last Taken Type Amoxicillin/K Clav Tab [Augmentin 1 each PO Q12HR #20 tablet 04/14/22 Unknown Rx 500 MG TAB] Ibuprofen [Motrin 600 MG tab] 600 mg PO Q8H PRN #15 tab 04/14/22 Unknown Rx Allergies Allergy/AdvReac Type Severity Reaction Status Date / Time No Known Allergies Allergy Verified 12/07/20 17:27 ED Review of Systems ROS: Stated complaint: TOOTH CHIPPED HAVE HOLE IN TONGUE Other details as noted in HPI Comment: All other systems reviewed and negative Constitutional: denies: chills, fever Eyes: denies: vision change ENT: as per HPI. denies: ear pain, throat pain, hearing loss, epistaxis, congestion Respiratory: no symptoms reported. denies: cough, shortness of breath Cardiovascular: denies: chest pain, palpitations, edema Endocrine: denies: intolerance to cold, intolerance to heat, increased hunger, increased thirst Gastrointestinal: denies: abdominal pain, nausea, vomiting, diarrhea Genitourinary: denies: dysuria, hematuria Musculoskeletal: denies: back pain Skin: denies: rash Neurological: denies: headache, weakness, numbness, paresthesias Psychiatric: denies: anxiety, depression, homicidal thoughts, suicidal thoughts Hematological/Lymphatic: denies: easy bleeding, easy bruising ED Past Medical Hx - Past Medical History Previous Medical History?: Yes Hx Diabetes: Yes (3 years ago) Hx Psychiatric Treatment: Yes (bipolar disorder, anxiety, depression) Additional medical history: Vaginal delivery x 2. "Stillborn x 1". Anxiety - Surgical History Past Surgical History?: Yes Additional Surgical History: x 2 - Family History Family history: no significant - Social History Smoking Status: Never Smoker Substance Use Type: Other (Denies) - Medications Home Medications: Home Medications Medication Instructions Recorded Confirmed Last Taken Type Amoxicillin/K Clav Tab [Augmentin 1 each PO Q12HR #20 tablet 04/14/22 Unknown Rx 500 MG TAB] Ibuprofen [Motrin 600 MG tab] 600 mg PO Q8H PRN #15 tab 04/14/22 Unknown Rx ED Physical Exam - General Limitations: No Limitations General appearance: alert, anxious - Head Head exam: Present: atraumatic, normocephalic - Eye Eye exam: Absent: scleral icterus, conjunctival injection - ENT ENT exam: Present: mucous membranes moist, TM's normal bilaterally, normal external ear exam - Expanded ENT Exam Expanded Mouth exam: Present: other (There is an abrasion on the right tongue consistent with sharp tooth adjacent to it. Tongue is slightly swollen.) Teeth exam: Present: dental caries, fractured tooth # (Multiple diffuse caries with decay. There is a sharp edge on the right mandibular first molar area) ED Course Vital Signs 04/13/22 04/14/22 16:31 01:46 Temperature 98.5 F Pulse Rate 95 H 85 Respiratory 12 12 Rate Blood Pressure 156/80 153/81 [Right] O2 Sat by Pulse 95 100 Oximetry - Reevaluation(s) Reevaluation #1: 04/14/22 01:14 Blood sugar 89 ED Medical Decision Making - Lab Data Result diagrams: 04/14/22 00:24 - Medical Decision Making Dental caries. Tongue abrasion with slight swelling. Critical care attestation.: If time is entered above; I have spent that time in minutes in the direct care o f this critically ill patient, excluding procedure time. ED Disposition Clinical Impression: Severe dental caries, Abrasion of tongue Disposition: HOME / SELF CARE / HOMELESS Is pt being admited?: No Condition: Stable Instructions: Abrasion, Preventive Dental Care, Adult Additional Instructions: Swish and spit with salt water mixed with hydrogen peroxide (do not swallow). Antibiotics as prescribed. Follow-up with dentist. List given. Prescriptions: Amoxicillin/K Clav Tab [Augmentin 500 MG TAB] 1 each PO Q12HR #20 tablet Ibuprofen [Motrin 600 MG tab] 600 mg PO Q8H PRN #15 tab PRN Reason: Pain, Moderate (4-6) Referrals: JOSHUA SIDDIQUI MD [Primary Care Provider] - 3-5 Days Forms: Work/School Release Form(ED) Time of Disposition: 01:15 - Addendum Date: 04/14/22 Note: As I was discharging this patient, she states that we did not do anything for her chest pain. During my history gathering, the patient did tell me she had some chest pain last week and that she had already been seen for it but she denied having any chest pain at this time. She does state that its been intermittent since she has been here and it is not related to exertion. EKG performed was sinus rhythm at 68 without ischemic changes. Immediately after having her EKG done the patient left without me having a chance to talk to her. Work-up for chest pain not complete.
[2022-04-14 01:47] VITALS: BP 153/81
--- NOTE | 2022-04-14 10:58 | Electrocardiograph Report ---
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
== END 2022-04-14 01:47 | disposition home or self-care (01) ==
LOC: ED 16:16
DX: K02.9 Dental caries, unspecified (principal); S00.512A Abrasion of oral cavity, initial encounter; X58.XXXA Exposure to other specified factors, initial encounter; Y93.89 Activity, other specified; Y92.89 Other specified places as the place of occurrence of the external cause; Y99.8 Other external cause status; E11.9 Type 2 diabetes mellitus without complications; F31.9 Bipolar disorder, unspecified; F41.9 Anxiety disorder, unspecified
CPT/HCPCS: 36415; 82947; 82962; 93005; 99283